=== PATIENT | female | born 1975 | race Caucasian/White ===

== ENCOUNTER 2016-05-17 19:25 | Emergency (ER) | payer OTHER ==
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
--- NOTE | 2016-05-17 21:40 | ED MED RECONCILIATION SUMMARY ---
Patient: NGHIA DEL ROSARIO Medication Reconciliation Report [facility] VisitID: [id number] [address] [place] [address] 40y, F Registration Date/Time: 05/17/2016 Weight: 79.3 kg Height/Length: 66 in. BMI: 28.2 ALLERGIES: Penicillins The patient's Home Medications are listed below: NONE. The source(s) of the original Home Medication information: Not obtained. The following Medications were given to the patient in the Emergency Department: None. The following Medications were prescribed to the patient: Zofran (orally disintegrating tablets) 4 mg: take 1 orally for 3 days as needed for nausea. Dispense ten (10). No refill. Substitution is permissible. -- Meredith Iverson, P.A.-C Flexeril 10 mg: take 1 orally every 8 hours for 3 days. Dispense ten (10). No refills. -- Meredith Iverson, P.A.-C
--- NOTE | 2016-05-17 21:40 | ED MAR SUMMARY ---
..... Medication Administration Record [facility] [address] [place], [place] [id number] Patient: NGHIA DEL ROSARIO Visit ID: [id number] 40y, F Weight: 79.3 kg Height/Length: 66 in BMI: 28.2 ALLERGIES: Penicillins
--- NOTE | 2016-05-17 21:40 | ED MAR SUMMARY ---
..... Medication Administration Record [facility] [address] [place], [place] [id number] Patient: NGHIA DEL ROSARIO Visit ID: [id number] 40y, F Weight: 79.3 kg Height/Length: 66 in BMI: 28.2 ALLERGIES: Penicillins
--- NOTE | 2016-05-17 21:40 | ED MED RECONCILIATION SUMMARY ---
Patient: NGHIA DEL ROSARIO Medication Reconciliation Report [facility] VisitID: [id number] [address] [place] [address] 40y, F Registration Date/Time: 05/17/2016 Weight: 79.3 kg Height/Length: 66 in. BMI: 28.2 ALLERGIES: Penicillins The patient's Home Medications are listed below: NONE. The source(s) of the original Home Medication information: Not obtained. The following Medications were given to the patient in the Emergency Department: None. The following Medications were prescribed to the patient: Zofran (orally disintegrating tablets) 4 mg: take 1 orally for 3 days as needed for nausea. Dispense ten (10). No refill. Substitution is permissible. -- Meredith Iverson, P.A.-C Flexeril 10 mg: take 1 orally every 8 hours for 3 days. Dispense ten (10). No refills. -- Meredith Iverson, P.A.-C
== END 2016-05-17 20:54 | disposition home or self-care (01) ==
LOC: ED SRH 19:25
DX: M54.9 Dorsalgia, unspecified (principal); V43.52XA Car driver injured in collision with other type car in traffic accident, initial encounter; Y93.89 Activity, other specified; Y92.410 Unspecified street and highway as the place of occurrence of the external cause; Y99.9 Unspecified external cause status